=== PATIENT | male | born 1955 | race Caucasian/White ===

== ENCOUNTER → 2017-09-06 | Outpatient (CLI) | payer OTHER ==
--- NOTE | 2017-09-06 14:54 | DIAGNOSTIC IMAGING REPORT ---
LUMBAR SPINE 5 VIEWS HISTORY: Bilateral leg pain. COMPARISON: None. FINDINGS: There is no fracture. No subluxation. Moderate facet degenerative changes within the lower lumbar spine. The sacrum is intact. Endplate osteophytes throughout the majority of the lumbar spine. Disc spaces are relatively preserved. IMPRESSION: 1. No fracture or subluxation within the lumbar spine. 2. Disc spaces are relatively preserved throughout the lumbar spine. 3. Moderate facet degenerative changes within the lower lumbar spine. Electronically signed by: Yohan Kirkpatrick M.D. 09/06/2017 2:52 PM Dictated Date/Time: 09/06/2017 2:50 PM
== END | disposition home or self-care (01) ==
LOC: C.RAD 13:37
PROVIDERS: ATTEND Family Medicine
DX: M47.816 Spondylosis without myelopathy or radiculopathy, lumbar region (principal); M79.604 Pain in right leg; M79.605 Pain in left leg